=== PATIENT | female | born 1940 | race Two or more races ===

== ENCOUNTER 2018-01-15 14:15 | Inpatient (IN) | payer OTHER ==
[~2018-01-15] VITALS: Ht 167.6 cm; Wt 95.3 kg
[2018-01-15] MEDS ORDERED: GABAPENTIN800 MG PO (16:12)
[2018-01-15] MEDS ORDERED: SYNTHROID112 MCG PO (16:12)
[2018-01-15] MEDS ORDERED: ZOCOR40 MG PO (16:12)
[2018-01-15] MEDS ORDERED: XANAX1 MG PO (16:12)
[2018-01-18] MEDS ORDERED: DOCUSATE SODIU100 MG PO (12:42)
[2018-01-18] MEDS ORDERED: AMOX-CLAV 875-1 EACH PO (12:43)
[2018-01-18] MEDS ORDERED: GABAPENTIN800 MG PO (12:43)
[2018-01-18] MEDS ORDERED: PERCOCET 5-3251 EACH PO (12:44)
[2018-01-18] MEDS ORDERED: CLONAZEPAM1 MG PO (12:44)
== END 2018-01-18 16:06 | DRG 460 ==
LOC: O/R 01-17 06:10 → PED 01-17 06:10 → RECOVERY 01-17 07:00 → PED 01-17 14:52
PROVIDERS: Orthopaedic Surgery Orthopaedic Surgery of the Spine
PROC: 0SG00AJ Fusion of Lumbar Vertebral Joint with Interbody Fusion Device, Posterior Approach, Anterior Column, Open Approach (ICD-10-PCS; 2018-01-17)
PROC: 0ST20ZZ Resection of Lumbar Vertebral Disc, Open Approach (ICD-10-PCS; 2018-01-17)
PROC: 07DS3ZZ Extraction of Vertebral Bone Marrow, Percutaneous Approach (ICD-10-PCS; 2018-01-17)
PROC: 0SG00A0 Fusion of Lumbar Vertebral Joint with Interbody Fusion Device, Anterior Approach, Anterior Column, Open Approach (ICD-10-PCS; principal; 2018-01-17 07:00)
DX: M48.061 Spinal stenosis, lumbar region without neurogenic claudication (principal); M43.16 Spondylolisthesis, lumbar region; I10 Essential (primary) hypertension; E03.8 Other specified hypothyroidism